=== PATIENT | female | born 1960 | race African-American/Black ===

== ENCOUNTER 2025-03-30 15:23 | Outpatient (AMB) | payer OTHER, SELFPAY ==
--- NOTE | 2025-03-30 15:26 | MHC.PC.OV ---
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: No Accompanied by: Self / Same As Patient Allergies Penicillins Adverse Reaction (Intermediate, Verified 03/30/25 15:33) Nausea sulfamethoxazole (From Bactrim) Adverse Reaction (Intermediate, Verified 03/30/25 15:33) Nausea and itching trimethoprim (From Bactrim) Adverse Reaction (Intermediate, Verified 03/30/25 15:33) Nausea and itching Medication List - Last Reconciled 03/30/25 by Sarah Wells MD albuterol sulfate 90 mcg/actuation 2 puffs inhalation Q6H PRN albuterol sulfate mg inhalation Q6H PRN amlodipine 5 mg PO DAILY atorvastatin 10 mg PO DAILY ketoconazole 2% topical ONCE PRN levocetirizine 5 mg PO mesalamine 1,000 mg MA BEDTIME sertraline 150 mg PO DAILY triamcinolone acetonide 0.025% 1 appl topical DAILY PRN Tobacco use date assessed: 03/30/25 Fall risk assessment: 2 + Falls in past year Last assessed Fall Risk: 03/30/25 Dental Screening Dental Screen Date: 03/30/25 Did you have a dental visit in the last 12 months?: No Did you have a dental problem in the last 6 months where you did not have access to dental care?: No HPI HPI Comments History of Present Illness Details The patient is a 65 year old female presenting to [facility] and for evaluation of persistent headaches following a fall. Post-concussion syndrome and Headaches: The patient sustained head trauma from a fall at work on March 17. The patient went to the hospital but did not receive a CT scan and was given Tylenol. The patient has experienced headaches every day since the fall, which have progressively worsened, with a particularly severe headache last Saturday that brought the patient to tears. The patient was out of work for three days, and upon returning to work and using a computer, the headaches have intensified. Hypertension: The patient has a history of high blood pressure and received a refill for blood pressure medication at the hospital after the fall. The patient takes amlodipine 5 mg once daily. 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 The patient uses mesalamine (Canasa) suppositories, which are effective in managing the symptoms. The patient denies any bloody stools. Depression and Anxiety: The patient takes sertraline 150 mg daily. The patient experienced significant stress over the summer when the patient's brother had a sudden cardiac arrest, though he has since recovered without neurological deficits. The patient is currently in therapy. Vaginal Pruritus: The patient has a history of vaginal itching and was prescribed triamcinolone cream by her AIR HOIST OPERATOR, which is used as needed during flare-ups. Social History: - Nutrition: The patient does not eat consistently and was advised to increase protein intake and avoid skipping meals. - Hydration: The patient was advised to drink 48 to 64 ounces of water consistently. 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 1. Little interest or pleasure in doing things: not at all 2. Feeling down, depressed, or hopeless: not at all 3. Trouble falling or staying asleep, or sleeping too much: not at all 4. Feeling tired or having little energy: several days 5. Poor appetite or overeating: not at all 6. Feeling bad about yourself - or that you are a failure or have let yourself or your family down: not at all 7. Trouble concentrating on things, such as reading the newspaper or watching television: not at all 8. Moving or speaking so slowly that other people could have noticed. Or the opposite - being so fidgety or restless that you have been moving around a lot more than usual: several days 9. Thoughts that you would be better off or of hurting yourself in some way: not at all Total score: 2 Depression Screening Interpretation: Negative Depression Screening Done: Yes 25768 - PHQ-9 Billing: Yes Source: Developed by Drs. Fabrice Sampson, Skye Jett, Carlos Foster and colleagues, with an educational rodolfo from [employer] AUDIT C Alcohol Use Questionnaire (AUDIT-C) 1. How often do you have a drink containing alcohol?: Never 3. How often do you have six or more drinks on one occasion?: Never Total Score: 0 Review of Systems Narrative Review of Systems - Respiratory: Denies wheezing. - Gastrointestinal: Denies bloody stools. - Genitourinary: Reports intermittent vaginal itching. - Neurological: Reports persistent, worsening headaches since a fall 2 weeks ago. - Denies dizziness prior to the fall. Physical exam (Primary Care) Vital Signs: Last Vital Signs Temp 96.8 F 03/30/25 15:27 Pulse 58 03/30/25 15:27 Resp 16 03/30/25 15:27 BP 124/88 03/30/25 16:33 Pulse Ox 96 03/30/25 15:27 Oxygen Delivery Method Room Air 03/30/25 15:27 BMI result Body Mass Index 38.4 Tobacco/Smoking Status: Tobacco use Status Tobacco use date assessed 03/30/25 03/30/25 15:31 Patient Tobacco Use Status Never used Tobacco 03/30/25 15:38 e-Cigarette/Vaping Use Never Used 03/30/25 15:38 PHQ-9: PHQ-9 Score PHQ-9: Total score 2 03/31/25 14:24 Depression Screening Interpretation: Negative Narrative Physical Exam -Gen: NAD - Lungs: Clear to auscultation bilaterally, no wheezing. - Cardiovascular: Heart sounds are normal. Soft murmur across precordium. A bruit was auscultated over the right carotid artery. - Abd: SNTND, +BS - Extremities: No swelling in the legs. Coding Level of Care Code Est Pt Level 4 (40331) Complex visit Add On G2211 Diagnoses Primary hypertension I10 Fall, subsequent encounter W19.XXXD Encounter type: subsequent encounter Proctitis K62.89 Depression with anxiety F41.8 Bruit of right carotid artery R09.89 Laterality: right Additional Codes PHQ-9 - 26504 - PHQ-9 Billing: Yes ([id number]) Assessment & Plan Assessment & Plan (1) Primary hypertension: Code(s): I10 - Essential (primary) hypertension Category: Medical (2) Fall: Code(s): W19.XXXA - Unspecified fall, initial encounter Category: Medical Qualifiers: Encounter type: subsequent encounter Qualified Code(s): W19.XXXD - Unspecified fall, subsequent encounter (3) Proctitis: Code(s): K62.89 - Other specified diseases of anus and rectum Category: Medical (4) Depression with anxiety: Code(s): F41.8 - Other specified anxiety disorders Category: Medical (5) Primary hypertension: Code(s): I10 - Essential (primary) hypertension Category: Medical (6) Carotid bruit present: Code(s): R09.89 - Other specified symptoms and signs involving the circulatory and respiratory systems Category: Medical Qualifiers: Laterality: right Qualified Code(s): R09.89 - Other specified symptoms and signs involving the circulatory and respiratory systems Plan Assessment and Plan 1. Post-concussion syndrome and headache - The patient has worsening headaches following head trauma two weeks ago, with no initial imaging performed. - The plan is to order a CT scan of the head to rule out intracranial pathology. - The patient was advised on brain rest, including limiting screen time, ensuring adequate hydration, and maintaining consistent meals. - If symptoms persist, a reduction in work hours or a temporary leave from work will be considered. 2. Right carotid bruit - A bruit was auscultated over the right carotid artery, indicating potential turbulent blood flow. - An ultrasound of the carotid arteries will be ordered to evaluate for stenosis. 3. Heart murmur and cardiovascular health - In the context of a known heart murmur, hypertension, and a newly found carotid bruit, will do additional testing - An echocardiogram will be ordered to assess cardiac valves and function. 4. Hypertension - The patient's blood pressure was initially elevated at 140/90 mmHg, however, normalized on repeat to 124/88. 5. Hyperlipidemia - The patient is on atorvastatin 10 mg. A cholesterol panel was included in the lab orders, and a refill for atorvastatin was sent. 6. Depression and anxiety - The patient is stable on sertraline 150 mg daily and is engaged in therapy. 7. Proctitis - The patient's symptoms are well-controlled with mesalamine suppositories. - The patient is to continue the current regimen. 8. Reactive airway disease - continue albuterol inhaler 9. 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 - A single tube of cream will be prescribed to use as needed until the patient can be seen by a scale installer. 10. Health Maintenance - The patient is due for a screening mammogram, and an order was placed. - Lab orders were placed to check electrolytes and a cholesterol panel. - Follow up in 2 months Plan - Order a CT scan of the head. - Order an echocardiogram. - Order a carotid artery ultrasound. - Place an order for a screening mammogram. - Place orders for labs, including electrolytes and a cholesterol panel. - Advise patient on brain rest, including minimizing screen time, ensuring adequate hydration (48-64 oz/day), and eating consistent meals. Discussion Notes I discussed with the patient my concern for the persistent and worsening headaches following a fall. I explained the plan to order a CT scan of the head to ensure there is no underlying injury. I also explained the finding of a bruit in the neck, which is an abnormal sound related to blood flow, and the need for an ultrasound of the carotid arteries to investigate this further. I provided guidance on brain rest, which includes limiting screen time, staying hydrated, and eating regular meals to aid in recovery. Patient Instructions - We are ordering a CT scan of your head, an ultrasound of your heart (echocardiogram), and an ultrasound of the arteries in your neck (carotid arteries). Our scheduling team will call you to set up these appointments. - Please go to the lab to get your blood work done within the next week. Make sure to drink plenty of water beforehand. - An order has been placed for you to get your routine mammogram. - Stay well-hydrated by drinking 6 to 8 glasses of water a day, and eat regular meals. Do not skip meals and try to include protein with them. - If your headaches are still bothering you, please let me know. We may need to reduce your work hours for a while. Orders: Orders CT head/brain wo IV con 03/30/25 W19.XXXA - Unspecified fall, initial encounter Comprehensive Met. Panel 03/30/25 E66.9 - Obesity, unspecified, I10 - Essential (primary) hypertension Complete Blood Count Auto Diff 03/30/25 E66.9 - Obesity, unspecified, I10 - Essential (primary) hypertension Microalbumin, Random (w Creat) 03/30/25 I10 - Essential (primary) hypertension US carotid duplex BI 03/30/25 R09.89 - Other specified symptoms and signs involving the circulatory and respiratory systems CA echo transthoracic complete 03/30/25 I10 - Essential (primary) hypertension, R01.1 - Cardiac murmur, unspecified Lipid Panel 03/30/25 E66.9 - Obesity, unspecified, I10 - Essential (primary) hypertension Hemoglobin A1c 03/30/25 E66.9 - Obesity, unspecified, I10 - Essential (primary) hypertension TSH reflex Free T4 03/30/25 E66.9 - Obesity, unspecified, I10 - Essential (primary) hypertension Medications: New albuterol sulfate 90 mcg/actuation 2 puffs inhalation Q6H PRN 8.5 grams 11RF wheezing amlodipine 5 mg PO DAILY 90 tabs 3RF atorvastatin 10 mg PO DAILY 90 tabs 3RF triamcinolone acetonide 0.025% for vaginal itch 1 appl topical DAILY PRN 80 grams 0RF vaginal itching sertraline 150 mg (1.5 x 100 mg) PO DAILY 135 tabs 3RF
[2025-03-30 15:27] VITALS: BP 140/90; PULSE 58; RESP 16; TEMP 36; O2SAT 96; BMI 38.4
[2025-03-30 16:33] VITALS: BP 124/88
--- OUTSIDE RECORDS SUMMARY | 2025-03-30 19:00 | XMS_ITS | Data Portability ---
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 Over the past 2 weeks she has been seen by her PCP 3 times completing zpack and prednisone taper with neg CXR on 04/02; ED on 04/14 with repeated neg flu, RSV and COVID. Dx with laryngitis and bronchitis dx with cough med with codeine for which she stopped because it did not help. Tessalon pearles did not work. PCP now suggested Coricidin 2 days ago for which it helps a bit to the point she can sleep now. Cough productive now clearer light yellow to white (was dark yellow to brown). Has not been taking her nebulizers scheduled. Still very hoarse but improving as well. No chest pain; some increase in dyspnea since she has been sick. Exam: Non-toxic, pleasant female in no acute distress; afebrile; BP a bit elevated but PCP just restarted her amlodipine. TMs clear, no rhinorrhea or sinus tenderness; no pharyngeal erythema; no cervical LAD; Lungs clear/equal all west; S1S2 regular; abd soft, nontender +BS; no edema DDx considered, but not limited to: -Post viral cough: most likely as now improving -Laryngitis: present with hoarse voice/viral illness -Asthmatic bronchitis: considered due to history of asthma with wheezing and productive cough Work up/Results: None indicated; as checked PVIX and had all normal diagnostics Plan/Discussion: Asthmatic bronchitis with post viral cough -Emphasized need to be proactive in treatment -Scheduled updrafts TID next 3-5 days -Scheduled Coricidan TID next 3-5 days -salt water gargles -Humidifier -Maintain fluids -PCP follow up5-7 days, rupesh since getting better -ED precautions Proper Personal Protective Equipment (PPE), including gloves, eye protection and masks were donned and doffed appropriately and all equipment cleaned using approved technique with germicidal disposable wipes prior to and after care of this patient according to [facility]'s infection prevention protocols. gloria Not available 04/14/2022 12:31:50 Plan of Treatment Reminders Order Date Submit Date Provider Last Modified By Organization Details Last Modified Time Details Appointments None record ed. Lab None record ed. Referral None record ed. Procedures None record ed. Surgeries None record ed. Imaging None record ed. Medication Orders None record ed. Patient TargetsNo targets recorded. Patient Instructions Encounter Date Encounter Id Patient Instructions Last Modified By Organization Details Last Modified Time 04/14/2022 [id number] -You were seen today for persistent cough and laryngitis that is slowly improving, most likely due to viral infection with asthmatic bronchitis/post viral cough -Emphasized need to be proactive in treatment -Scheduled updrafts 3 times a day for next 3-5 days -Scheduled Coricidan 3 times a day for the next 3-5 days -salt water gargles -Humidifier -Maintain fluids -PCP follow up5-7 days, rupesh since getting better -ED for any worsening cough, chest pain, fever gloria Not available 04/14/2022 12:33:23 Reason for Referral None Reported. Procedures Surgical History Date Name Laterality Status Provider Name and Address Organization Details Recorded Time Removal of ovarian cyst(s) completed Skye Clark NP [address] [place], [address], [place] [facility] 04/14/2022 12:05:22 delivery completed Skye Clark NP [address] [place], [address], [place] [facility] 04/14/2022 12:05:39 partial repair of rotator cuff completed Skye Clark NP [address] [place], [address], [place] [facility] 04/14/2022 12:06:05 Imaging Results None recorded. Procedure Notes None recorded. Medical Equipment None Reported. Allergies Allergen ID Allergen Name Allergen Category Reaction Reaction Severity Criticality Documentation Date Start Date Code Code System Note Provider Name and Address Organization Details Recorded Time 646227 Bactrim medicatio n Not available Not available Not available 04/14/2022 55339 9 RxNorm Skye YesseniaAMISHA flynn [address] [facility] [place], [address], [place] [facility] 12:01:22 [id number] Product containin g penicilli n (product) medicatio n Not available Not available Not available 04/14/2022 56152 8001 SNOMED Skye Clark NP [address] [place], [address], [place] [facility] 12:01:30 Medications Name Sig Start Date Stop Date Status Note LastModified by Organization Details LastModified Time betamethaso ne valerate 0.1 % topical ointment APPLY TO AFFECTED AREA EXTERNALL Y 2 TIMES A DAY NEEDED FOR 7 DAYS 04/14 completed Not Available Not Available Not Available albuterol sulfate 2.5 mg/3 mL (0.083 %) solution for nebulizatio n INHALE 1 VIAL VIA NEBULIZER EVERY 6 HOURS NEEDED FOR WHEEZING active Not Available Not Available No t Available azithromyci n 250 mg tablet TAKE 2 TABLETS BY MOUTH TODAY, THEN TAKE 1 TABLET DAILY FOR 4 DAYS 04/14 completed Not Available Not Available Not Available prednisone 20 mg tablet TAKE 1 TABLET BY MOUTH DAILY FOR 5 DAYS WITH FOOD OR MILK 04/14 completed Not Available Not Available Not Available amlodipine 2.5 mg tablet TAKE 1 TABLET BY MOUTH EVERY DAY active Not Available Not Available No t Available triamcinolo ne acetonide 0.1 % topical cream APPLY TOPICALLY 3 TIMES A DAY, APPLY A THIN FILM NO MORE THAN 2 CONSECUTI VE WEEKS 04/14 completed Not Available Not Available Not Available benzonatate 100 mg capsule 04/14 completed Not Available Not Available Not Available triamcinolo ne acetonide 0.1 % topical ointment APPLY TO AFFECTED AREA BY EXTERNAL ROUTE TWICE A DAY NEEDED 04/14 completed Not Available Not Available Not Available Adderall XR 10 mg capsule,ext ended release TAKE 1 CAPSULE BY MOUTH DAILY IN AM FOR 14 DAYS, ADHD TRIAL DOSE active Not Available Not Available No t Available montelukast 10 mg tablet TAKE 1 TABLET BY MOUTH EVERY DAY active Not Available Not Available No t Available codeine 10 mg-guaifene sin 100 mg/5 mL oral liquid TAKE 10 ML BY MOUTH EVERY 4 HOURS NEEDED FOR COUGH 04/14 completed Not Available Not Available Not Available clobetasol 0.05 % topical ointment APPLY A THIN FILM TWICE A DAY NO MORE THAN 2 WEEKS TOPICALLY 04/14 completed Not Available Not Available Not Available ibuprofen 600 mg tablet TAKE 1 TABLET BY MOUTH EVERY 8 HOURS active Not Available Not Available No t Available fluticasone propionate 50 mcg/actuati on nasal spray,suspe nsion SPRAY 1 SPRAY INTO EACH NOSTRIL DAILY IN THE MORNING active Not Available Not Available No t Available sertraline 50 mg tablet TAKE 1 TABLET BY MOUTH EVERY DAY active Not Available Not Available No t Available loratadine 10 mg tablet TAKE 1 TABLET BY MOUTH EVERY DAY active Not Available Not Available No t Available Murine Ear 6.5 % drops PLACE 5 DROPS IN BOTH EARS TWICE DAILY FOR 4 DAYS 04/14 completed Not Available Not Available Not Available Ventolin HFA 90 mcg/actuati on aerosol inhaler INHALE 2 PUFFS EVERY 4 HOURS NEEDED FOR WHEEZING active Not Available Not Available No t Available Flovent HFA 110 mcg/actuati on aerosol inhaler INHALE 2 PUFFS TWICE A DAY active Not Available Not Available No t Available L.acidophil ,salivari-B ifido bifidum-Str ep thermoph 175 mg capsule TAKE 1 CAPSULE BY MOUTH EVERY DAY active Not Available Not Available No t Available cholecalcif marcel (vitamin D3) 50 mcg (2,000 unit) capsule TAKE 1 CAPSULE BY MOUTH EVERY DAY active Not Available Not Available No t Available Paxlovid 300 mg (150 mg x 2)-100 mg tablets in a dose pack TAKE 3 TABLETS BY MOUTH TWICE A DAY FOR 5 DAYS 04/14 completed Not Available Not Available Not Available Vitals Date Recorded Oxygen saturation Body temperature Respiratory rate Heart rate Systolic And Diastolic Provider Name and Address Organization Details Last Updated DateTime 2 99 % 96.6 [degF] 20 /min 88 /min 142/84 mm[Hg] Not Available [facility] 12:05:31 Social History Question Answer Notes LastModified by Organizat ion Details LastModified Time Tobacco Smoking Status Never Smoker Skye Clark NP [address], [place], [address], [place] [facility] 04/14/2022 12:04:58 Do You Have An Advance Directive? No Information not available 04/14/2022 What Is Your Code Status? Full Code Information not available 04/14/2022 Sex: Unknown Functional Status Question Answer Note LastModified by Organizat ion Details LastModified Time Do you use any illicit or recreational drugs? No Information not available 04/14/2022 What is your level of alcohol consumption? None Information not available 04/14/2022 Mental Status None recorded. Family History Relationship Description Onset Age of this Age Resolved Age Notes LastModified by Organization Details LastModified Time Father Malignant neoplasm of esophagus jhelliwell Not available 04/14 12:04:25 Mother Multiple myeloma elliwell Not available 04/14 12:04:40 Medical History Condition Response Coronary Artery Disease N COPD N Hypothyroidism N A-fib N Cancer N Stroke N High Cholesterol N Rheumatoid Arthritis N Kidney Disease N Parkinson's Disease N Diabetes N CHF N Dementia N Asthma Y Pulmonary Embolism N Hypertension Y Osteoporosis N Gynecological HistoryNo gynecological history recorded. Obstetrics History GPAL:G 0 P 0 0 0 0 Past Encounters Encounter ID Performer Location Encounter Start Date Encounter Closed Date Diagnosis/Indication Diagnosis SNOMED-CT Code Diagnosis ICD10 Code Diagnosis IMO Codes Diagnosis Note [id number] Skye Clark NP [facility] [address] [place] [address] 04/14/2022 11:59:37 04/16/2022 13:20:36 Asthmatic bronchitis 061084743 J45.909 Inflammati on of larynx caused by virus 262815520 J04.0 Essential hypertension 09760993 I10 restarted med: to log blood pressures for PCP Health Concerns Section Related Observation LastModified by Organization Detai ls LastModified Time None Recorded Concern Status LastModified by Organization Details LastModified Time None Recorded Advance Directives Directive N: Payers Insurance Date Sequence Insurance Name Policy Number Policy Youssef Covered Member ID Youssef Member ID Guarantor Name 04/13/2022 1 [place] [facility] Magalys Petr [id number] Magalys Petr 06/24/2018 1 *SELF PAY* Magalys Petr [id number] Magalys Petr 04/16/2022 1 [facility] [id number] Magalys Petr [id number] Magalys Petr 04/14/2022 1 [facility] [id number] Magalys Petr [id number] Magalys Petr 04/13/2022 1 [facility] (MEDICAID HMO) [id number] Magalysshaye Humphreys [id number] Magalys Petr 04/13/2022 1 [place] [facility] Magalys Petr [id number] Magalys Humphreys 04/13/2022 1 [facility] (MEDICAID HMO) Magalys Humphreys [id number] Magalys Humphreys 04/14/2022 1 [facility] [id number] Magalysshaye Humphreys [id number] Magalys Humphreys 04/16/2022 1 [facility] Magalysshaye Humphreys [id number] Magalys Petr 04/13/2022 1 [facility] (MEDICAID HMO) [id number] Magalys Humphreys [id number] Magalys Humphreys 04/13/2022 1 [facility] (MEDICAID HMO) Magalys Humphreys [id number] Magalys Humphreys 04/13/2022 1 [facility] MEDICARE ADVANTAGE PLAN (MEDICARE REPLACEMENT HMO) [id number] Magalys Humphreys [id number] Magalys Humphreys Notes Date Note Type Note Provider Name and Address Organization Details Recorded Time 04/14/2022 text/html 62 year old female new to with a PMH of asthma, anxiety, ADHD, HTN being seen today for persistent cough. Over the past 2 weeks she has been seen by her PCP 3 times completing zpack and prednisone taper with neg CXR on 04/02; ED on 04/14 with repeated neg flu, RSV and COVID. Dx with laryngitis and bronchitis dx with cough med with codeine for which she stopped because it did not help. Tessalon pearles did not work. PCP now suggested Coricidin 2 days ago for which it helps a bit to the point she can sleep now. Cough productive now clearer light yellow to white (was dark yellow to brown). Has not been taking her nebulizers scheduled. Still very hoarse but improving as well. No chest pain; some increase in dyspnea since she has been sick. Skye Clark, AMISHA [address], [place], [address], [place] [facility] 04/14/2022 12:35:34 OBGyn Episode No OBEpisode recorded.
== END 2025-03-30 16:49 | disposition home or self-care (01) ==
LOC: HO.HMCHD 15:23
PROVIDERS: PCP Internal Medicine; Visit Provider Internal Medicine
DX: I10 Essential (primary) hypertension (principal); W19.XXXD Unspecified fall, subsequent encounter; K62.89 Other specified diseases of anus and rectum; F41.8 Other specified anxiety disorders; R09.89 Other specified symptoms and signs involving the circulatory and respiratory systems

== ENCOUNTER → 2025-03-30 15:23 | Outpatient (BNVA) | payer OTHER, SELFPAY | PROVIDERS: PCP Internal Medicine; Visit Provider Internal Medicine | DX: I10 Essential (primary) hypertension (principal); K62.89 Other specified diseases of anus and rectum; F41.8 Other specified anxiety disorders; R09.89 Other specified symptoms and signs involving the circulatory and respiratory systems; Z91.81 History of falling | CPT/HCPCS: 96127 ==

== ENCOUNTER 2025-04-12 14:29 | Outpatient (REF) | payer OTHER, SELFPAY ==
--- NOTE | ~2025-04-12 | CT_ITS ---
EXAMINATION: CT HEAD WITHOUT CONTRAST CLINICAL INFORMATION: W19.XXXA - Unspecified fall, initial encounter COMPARISON: None available. TECHNIQUE: Contiguous axial imaging was performed from the skull base to vertex without intravenous administration of contrast. This CT examination was performed using dose optimization techniques as appropriate, variously including the following: *Automated exposure control *Adjustment of mA and/or kV according to patient size (this includes techniques or standardized protocols for targeted exams where dose is matched to indication/reason for exam; i.e. extremities or head) *Use of iterative reconstruction technique DLP: 724 mGy-cm FINDINGS: No acute cortical disruption in the bony calvarium. No acute intracranial hemorrhage, mass effect, midline shift, hydrocephalus or herniation. Smith-white matter differentiation is normal. Posterior cranial fossa contents demonstrated no acute hemorrhage. Normal position of the cerebellar tonsils. Sellar/suprasellar region demonstrated no gross masses. No air-fluid levels in the paranasal sinuses. Tympanic cavities and mastoid cells are aerated. CT/CT head/brain wo IV con IMPRESSION: No acute fracture, bony calvarium. No acute intracranial hemorrhage. Electronically signed by: Reji Yanez MD 04/12/2025 03:15 PM [facility]
--- OUTSIDE RECORDS SUMMARY | 2025-04-12 23:34 | XMS_ITS | Data Portability ---
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 gloria Not available 04/14/2022 [...] By Organization Details Last Modified Time 04/14/2022 [id number] -You were seen today for persistent cough [...] completed Skye Clark NP [address] [place], [address], [place] [facility] 04/14/2022 12:05:22 delivery completed Skye Clark NP [address] [place], [address], [place] [facility] 04/14/2022 12:05:39 partial repair of rotator cuff completed Skye Clark NP [address] [place], [address], [place] [facility] 04/14/2022 12:06:05 Imaging Results None recorded. Procedure Notes None recorded. Medical Equipment None Reported. Allergies Allergen ID Allergen Name Allergen Category Reaction Reaction Severity Criticality Documentation Date Start Date Code Code System Note Provider Name and Address Organization Details Recorded Time 933112 Bactrim medicatio n Not available Not available Not available 04/14/2022 09519 9 RxNorm Skye YesseniaAMISHA flynn [address] [facility] [place], [address], [place] [facility] 12:01:22 993757 Product containin g penicilli n (product) medicatio n Not available Not available Not available 04/14/2022 13123 8001 SNOMED Skye Clark NP [address] [place], [address], [place] [facility] 12:01:30 Medications [...] /min 88 /min 142/84 mm[Hg] Not Available [facility] 12:05:31 Social History Question Answer Notes LastModified by Organizat ion Details LastModified Time Tobacco Smoking Status Never Smoker Skye Clark NP [address], [place], [address], [place] [facility] 04/14/2022 12:04:58 Do You Have An Advance Directive? No [facility] Information not available 04/14/2022 What Is Your Code Status? Full Code [facility] Information not available 04/14/2022 Sex: Unknown Functional Status Question Answer Note LastModified by Organizat ion Details LastModified Time Do you use any illicit or recreational drugs? No [facility] Information not available 04/14/2022 What is your level of alcohol consumption? None [facility] Information not available 04/14/2022 Mental Status None recorded. Family History Relationship Description Onset Age of this Age Resolved Age Notes LastModified by Organization Details LastModified Time Father Malignant neoplasm of esophagus jhelliwell Not available 04/14 12:04:25 Mother Multiple myeloma elliwell Not available 04/14 12:04:40 Medical History Condition Response Diabetes N Coronary Artery Disease N CHF N Parkinson's Disease N Cancer N Dementia N Stroke N Asthma Y COPD N Hypothyroidism N High Cholesterol N Rheumatoid Arthritis N Pulmonary Embolism N Hypertension Y A-fib N Osteoporosis N Kidney Disease N Gynecological HistoryNo gynecological history recorded. Obstetrics History GPAL:G 0 P 0 0 0 0 Past Encounters Encounter ID Performer Location Encounter Start Date Encounter Closed Date Diagnosis/Indication Diagnosis SNOMED-CT Code Diagnosis ICD10 Code Diagnosis IMO Codes Diagnosis Note [id number] Skye Clark NP [facility] [address] [place] [address] 04/14/2022 11:59:37 04/16/2022 13:20:36 Asthmatic bronchitis 962804799 J45.909 Inflammati on of larynx caused by virus 420900753 J04.0 Essential hypertension 31760883 I10 restarted med: to log blood pressures for PCP Health Concerns Section Related Observation LastModified by Organization Detai ls LastModified Time None Recorded Concern Status LastModified by Organization Details LastModified Time None Recorded Advance Directives Directive N: Payers Insurance Date Sequence Insurance Name Policy Number Policy Youssef Covered Member ID Youssef Member ID Guarantor Name 04/13/2022 1 [place] [facility] Magalys Petr [id number] Magalys Petr 06/24/2018 1 *SELF PAY* Magalys Petr [id number] Magalys Petr 04/16/2022 1 [facility] [id number] Magalys Petr [id number] Magalys Petr 04/14/2022 1 [facility] [id number] Magalys Petr [id number] Magalys Petr 04/13/2022 1 [facility] (MEDICAID HMO) [id number] Magalysshaye Humphreys [id number] Magalys Petr 04/13/2022 1 [place] [facility] Magalys Petr [id number] Magalys Humphreys 04/13/2022 1 [facility] (MEDICAID HMO) Magalys Humphreys [id number] Magalys Humphreys 04/14/2022 1 [facility] [id number] Magalysshaye Humphreys [id number] Magalys Humphreys 04/16/2022 1 [facility] Magalysshaye Humphreys [id number] Magalys Petr 04/13/2022 1 [facility] (MEDICAID HMO) [id number] Magalys Humphreys [id number] Magalys Humphreys 04/13/2022 1 [facility] (MEDICAID HMO) Magalys Humphreys [id number] Magalys Humphreys 04/13/[address] [facility] MEDICARE ADVANTAGE PLAN (MEDICARE REPLACEMENT HMO) [id number] Magalys Humphreys [id number] Magalys Humphreys Notes Date Note Type Note [...] has been sick. Skye Clark, AMISHA [address], [place], [address], [place] [facility] 04/14/2022 12:35:34 OBGyn Episode No OBEpisode recorded.
== END 2025-04-12 14:30 | disposition home or self-care (01) ==
LOC: HO.CT 14:29
PROVIDERS: PCP Internal Medicine; Visit Provider Internal Medicine
DX: R51.9 Headache, unspecified (principal); W19.XXXA Unspecified fall, initial encounter
CPT/HCPCS: 70450

== ENCOUNTER → 2025-04-12 14:32 | Outpatient (BNV) | payer OTHER, SELFPAY | PROVIDERS: PCP Internal Medicine; Visit Provider Radiology Diagnostic Radiology | DX: Z04.3 Encounter for examination and observation following other accident (principal) | CPT/HCPCS: 70450 ==